=== PATIENT | male | born 1975 | race Caucasian/White ===

== ENCOUNTER 2022-09-11 10:58 | Emergency (ER) | payer OTHER ==
[~2022-09-11] VITALS: Ht 172.7 cm; Wt 86.0 kg
[~2022-09-11 10:58] MED LIST: DEPO-MEDROL80 MG/ML IM; FLEXERIL PO; MOTRIN800 MG/TAB PO; ULTRAM50 M1 PO
[2022-09-11 11:33] VITALS: BP 128/82
[2022-09-11 11:45] VITALS: BP 125/83
[2022-09-11 12:03] VITALS: BP 114/78
[2022-09-11] MEDS ORDERED: CEPHALEXIN500 MG PO (12:30)
[2022-09-11 12:33] VITALS: BP 114/78
== END 2022-09-11 12:45 | disposition home or self-care (01) | DRG 605 ==
LOC: ED 10:58
DX: S61.411A Laceration without foreign body of right hand, initial encounter (principal)

== ENCOUNTER 2023-03-28 11:54 | Emergency (ER) | payer SELFPAY ==
[~2023-03-28] VITALS: Ht 172.7 cm; Wt 77.0 kg
[~2023-03-28 11:54] MED LIST changes: +CEPHALEXIN500 MG PO
[2023-03-28] MEDS ORDERED: KEFLEX500 MG PO (14:18)
[2023-03-28 14:24] VITALS: BP 112/81
== END 2023-03-28 14:40 | disposition home or self-care (01) | DRG 605 ==
LOC: ED 11:54
PROC: 0HQGXZZ Repair Left Hand Skin, External Approach (ICD-10-PCS; principal; 2023-03-28)
DX: S61.412A Laceration without foreign body of left hand, initial encounter (principal); X58.XXXA Exposure to other specified factors, initial encounter; F17.200 Nicotine dependence, unspecified, uncomplicated